=== PATIENT | male | born 1940 | race Caucasian/White ===

== ENCOUNTER 2019-04-21 14:22 | Emergency (ER) | payer BC ==
[~2019-04-21] VITALS: Ht 170.2 cm; Wt 50.8 kg
[2019-04-21] MEDS ORDERED: IV NORMAL SALINE 1000ML BAG 1,000 ML IV SCH (14:27)
[2019-04-21 14:45] LABS: BASO # 0.1 x10^3/uL (0.0-0.2); BASO % 1 % (0-3); EOS % 0 % (0-3); HEMATOCRIT 36.8 % (39.0-53.0); HEMOGLOBIN 11.8 g/dL (13.0-17.5); LYMPH # 5.2 x10^3/uL (1.0-4.8); LYMPH % 35 % (24-48); MEAN CORPUSCULAR HEMOGLOBIN 32 pg (25-35); MEAN CORPUSCULAR HGB CONC 32 g/dL (31-37); MEAN CORPUSCULAR VOLUME 101 fL (79-100); MONO # 1.1 x10^3/uL (0.0-1.1); MONO % 7 % (0-9); NEUT # 8.5 x10^3/uL (1.8-7.7); NEUT % 57 % (31-73); PLATELET COUNT 225 x10^3/uL (140-400); RED BLOOD COUNT 3.63 x10^6/uL (4.30-5.70); WHITE BLOOD COUNT 14.9 x10^3/uL (4.0-11.0)
[2019-04-21 14:47] LABS: CALCIUM 8.7 mg/dL (8.5-10.1); CREATININE 1.4 mg/dL (0.7-1.3); GFR 48.9; POTASSIUM 3.5 mmol/L (3.5-5.1)
[2019-04-21 14:48] LABS: PROTHROMBIN TIME PATIENT 15.8 SEC (11.7-14.0)
[2019-04-21 14:54] LABS: ALBUMIN/GLOBULIN RATIO 0.8 (1.0-1.7); MAGNESIUM 2.6 mg/dL (1.8-2.4); TOTAL BILIRUBIN 1.4 mg/dL (0.2-1.0)
[2019-04-21 14:55] LABS: BASE EXCESS ABG -12 mmol/L (-3-3); HCO3 ABG 16 mmol/L (21-28); PCO2 ABG 45 mmHg (35-46); PO2 ABG 150 mmHg (65-108); SAT O2 ABG 98 % (92-99)
[2019-04-21 14:57] LABS: FIO2 ABG 100
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
[2019-04-21 15:12] LABS: D-DIMER 5.99 ug/mlFEU (0.00-0.50)
[2019-04-21 15:15] LABS: BILIRUBIN,URINE NEGATIVE (NEG); CLARITY,URINE CLOUDY; COLOR,URINE YELLOW; NITRITE,URINE POSITIVE (NEG); PROTEIN,URINE 100 mg/dL (NEG-TRACE)
--- NOTE | 2019-04-21 15:21 | RAD ---
EXAM: Chest, single view; abdomen, single view. HISTORY: Orogastric tube placement. COMPARISON: None. FINDINGS: Frontal views of the chest and abdomen are obtained. There is an endotracheal tube within the distal trachea. The tip is approximately there is a nasogastric tube looped within the stomach. There is gaseous distention of the stomach. There is cardiomegaly. There is suspected small pleural effusions. There is no pneumothorax. IMPRESSION: 1. Nasogastric tube looped within the stomach and endotracheal tube within the distal trachea. 2. Distended air-filled stomach. 3. Mild cardiomegaly and suspected small bilateral pleural effusions. Electronically signed by: Rabia Oscar MD (04/21/2019 3:18 PM) [place] [id number]
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
[2019-04-21 15:29] LABS: SQUAMOUS EPITHELIAL CELL,UR MOD /LPF
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
[2019-04-21 15:30] LABS: BACTERIA,URINE MANY /HPF (0-FEW); WBC,URINE TNTC /HPF (0-4)
[2019-04-21] MEDS ORDERED: NOREPINEPHRIN 8MG/250ML PREMIX 250 ML IV ONE (15:30)
[2019-04-21] MEDS ORDERED: SODIUM BICARB ADULT 8.4% 50 MEQ/50 ML DISP.SYRIN. IV ONE (15:30)
[2019-04-21] MEDS ORDERED: CONTRAST GIVEN. MC PRN (15:30)
[2019-04-21] MEDS ORDERED: IOHEXOL 350 MG/ML 100 ML VIAL. IV ONE (15:30)
[2019-04-21 15:38] LABS: CHOLESTEROL/HDL RATIO 2.3
--- NOTE | 2019-04-21 15:40 | EKG ---
[facility] [address] [place] [address] Test Date: 2019-04-21 Test Time: 14:32:30 Pat Name: MEGHAN YAO Department: Room: Gender: M [employer]: : 1940 Requested By: NARDA SANTA Order Number: [id number] Reading MD: Measurements Intervals [place] Rate: 92 P: CA: QRS: 94 QRSD: 130 T: -44 QT: 354 QTc: 443 Interpretive Statements ATRIAL FLUTTER RIGHTWARD AXIS NON SPECIFIC INTRAVENTRICULAR BLOCK QRS(T) CONTOUR ABNORMALITY CONSIDER ANTEROLATERAL MYOCARDIAL DAMAGE ABNORMAL ECG RI6.01 No previous ECG available for comparison
--- NOTE | 2019-04-21 16:15 | CARD ---
MR#: [id number] Date of Study: 04/21/2019 Ordering Physician: AMINTA BRIGGS, Referring Physician: AMINTA BRIGGS Tech: Barb Townsend RDCS APPROVED REPORT EXAM: Two-dimensional and M-mode echocardiogram with Doppler and color Doppler. Other Information Quality : Good INDICATION Hypertension/HCVD S/P Cardiac Arrest 2D DIMENSIONS RVDd2.1 (2.9-3.5cm)Left Atrium(2D)2.6 (1.6-4.0cm) IVSd1.0 (0.7-1.1cm)Aortic Root(2D)3.7 (2.0-3.7cm) LVDd3.0 (3.9-5.9cm)LVOT Diameter2.2 (1.8-2.4cm) PWd0.9 (0.7-1.1cm)LVDs2.3 (2.5-4.0cm) FS (%) 22.7 %SV16.0 ml Aortic Valve AoV Peak Riky.105.8cm/sAoV VTI13.2cm AO Peak GR.4.5mmHgLVOT VTI 17.93cm AO Mean GR.3mmHg TDI Lateral E' P. V6.50cm/sMedial E' P. V14.67cm/s Tricuspid Valve TR P. [id number]/sRAP OCOPFUNY1vwLr TR Peak Gr.[id number] LEFT VENTRICLE The left ventricle is normal size. There is normal left ventricular wall thickness. The left ventricu lar systolic function is normal and the ejection fraction is within normal range. The Ejection Fracti on is 55-60%. RIGHT VENTRICLE The right ventricle is normal size. The right ventricular systolic function is normal. ATRIA The left atrium size is normal. The right atrium size is normal. The interatrial septum is intact wit h no evidence for an atrial septal defect or patent foramen ovale as noted on 2-D or Doppler imaging. AORTIC VALVE The aortic valve is not well visualized. Doppler and Color Flow revealed no significant aortic regurg itation. There is no significant aortic valvular stenosis. MITRAL VALVE The mitral valve is normal in structure and function. There is no evidence of mitral valve prolapse. There is no mitral valve stenosis. Doppler and Color Flow revealed trace mitral valve regurgitation. TRICUSPID VALVE The tricuspid valve is normal in structure and function. Doppler and Color Flow revealed trace to mil d tricuspid regurgitation. The PA pressure was estimated at 26 mmHg. There is no tricuspid valve sten osis. PULMONIC VALVE The pulmonic valve is not well visualized. Doppler and Color Flow revealed no pulmonic valvular regur gitation. There is no pulmonic valvular stenosis. GREAT VESSELS The aortic root is mildly dilated. The ascending aorta is moderately dilated at 4.0 cm. The IVC is no rmal in size and collapses >50% with inspiration. PERICARDIAL EFFUSION There is no evidence of significant pericardial effusion. Critical Notification Critical Value: No <Conclusion> The left ventricle is normal size. The left ventricular systolic function is normal and the ejection fraction is within normal range. The Ejection Fraction is 55-60%. Doppler and Color Flow revealed no significant aortic regurgitation. There is no significant aortic valvular stenosis. Doppler and Color Flow revealed trace mitral valve regurgitation. Doppler and Color Flow revealed trace to mild tricuspid regurgitation. The PA pressure was estimated at 26 mmHg. The ascending aorta is moderately dilated at 4.0 cm. Signed by : Suleman Saab MD Electronically Approved : 04/21/2019 16:14:31
[2019-04-21] MEDS ORDERED: MORPHINE SULFATE 4 MG/ML VIAL. IV ONE (16:45)
[2019-04-21 16:57] VITALS: BP 129/62
[2019-04-21] MEDS ORDERED: SODIUM BICARB ADULT 8.4% 50 MEQ/50 ML DISP.SYRIN. ONE (17:00)
[2019-04-21] MEDS ORDERED: EPINEPHrine SYRINGE 1 MG/10 ML SYRINGE ONE (17:00)
== END 2019-04-21 18:18 | disposition expired ==
LOC: ER 14:22 → 1 WEST ICU 15:12 → UNDOADMIN 15:12 → ER 18:18
DX: I46.9 Cardiac arrest, cause unspecified (principal); E78.5 Hyperlipidemia, unspecified; I10 Essential (primary) hypertension; I48.91 Unspecified atrial fibrillation; E87.2 Acidosis; Z86.718 Personal history of other venous thrombosis and embolism; R79.1 Abnormal coagulation profile; R94.5 Abnormal results of liver function studies; N28.9 Disorder of kidney and ureter, unspecified; M19.90 Unspecified osteoarthritis, unspecified site
CPT/HCPCS: 31500; 36415; 36600; 51702; 71045; 74018; 80053; 80061; 81001; 82550; 82805; 83690; 83735; 83880; 84443; 84484; 85025; 85379; 85610; 87086; 87186; 92950; 93005; 93306; 96365; 96366; 96375; 99291; J0171; J2060; J2270; J7030; 94002